=== PATIENT | male | born 1945 | race Caucasian/White ===

== ENCOUNTER 2019-11-20 13:47 | Emergency (ER) | payer MEDICARE ==
[~2019-11-20] VITALS: Ht 175.3 cm; Wt 81.4 kg
--- NOTE | 2019-11-20 14:25 | NUR ---
PT TO ED AFTER FALL WHILE SKIING 5 DAYS AGO. PT STATES MIDLINE PAIN TO NECK WITH MOVEMENT AND LEFT SHOULDER PAIN WITH MOVEMENT. PT ALSO STATES PAIN TO RIBS, BUT IS GETTING BETTER. PT DENEIS NUMBNESS OR TINGLING ANYWHERE AND DENIES LOSS OF BLADDER OR BOWEL. PT CONNECTED TO MONITORS. VSS. DR. PRINGLE TO FOR ASSESSMENT. NO NEEDS EXPRESSED. CALL LIGHT WITHIN REACH. AWIATING ORDERS.
--- NOTE | 2019-11-20 14:49 | NUR ---
pt to ct.
[2019-11-20 15:14] VITALS: BP 143/85
--- NOTE | 2019-11-20 15:14 | NUR ---
PT RESTIGN IN ROOM. VSS. NO NEEDS EXPRESSED. CALL LIT WITHIN REACH. AWAITING CT RESUTLS.
== END 2019-11-20 16:09 | disposition home or self-care (01) ==
LOC: ED 15:40
DX: S16.1XXA Strain of muscle, fascia and tendon at neck level, initial encounter (principal); S46.012A Strain of muscle(s) and tendon(s) of the rotator cuff of left shoulder, initial encounter; W18.30XA Fall on same level, unspecified, initial encounter; Y93.89 Activity, other specified; Y92.89 Other specified places as the place of occurrence of the external cause; Y99.8 Other external cause status
CPT/HCPCS: 72125; 99284